=== PATIENT | male | born 1965 | race Two or more races ===

== ENCOUNTER 2019-12-07 05:58 | Day surgery (SDC) | payer OTHER ==
[~2019-12-07] VITALS: Ht 162.6 cm; Wt 76.2 kg
[2019-12-07] VITALS (12 sets, daily range): BP systolic 94–140; BP diastolic 60–85
[2019-12-07] MEDS ORDERED: celeBREX 200mg Cap **SURGERY PATIENTS ONLY ORAL ONE (06:00)
[2019-12-07] MEDS ORDERED: oxyCONTIN 20mg tab ORAL ONE (06:00)
[2019-12-07] MEDS ORDERED: ceFAZolin 1gm IVPB IVPB ONE ×2 (06:00)
[2019-12-07] MEDS ORDERED: METFORMIN HCL500 M1 ORAL (06:58)
[2019-12-07] MEDS ORDERED: AMLODIPINE BESYL5 MG ORAL (06:58)
[2019-12-07] MEDS ORDERED: LR 1000ml 1,000 ML IVLG SCH (07:05)
--- NOTE | 2019-12-07 07:05 | Anethesia Preoperative Eval ---
Anesthesia Pre-op PMH/ROS General Date of Evaluation: Dec 07, 2019 Anesthesiologist: Tonny ASA Score: ASA 2 Mallampati Score Class I : Soft palate, uvula, fauces, pillars visible Class II: Soft palate, uvula, fauces visible Class III: Soft palate, base of uvula visible Class IV: Only hard plate visible Mallampati Classification: Class II Surgeon: Edna Diagnosis: Right shoulder internal derangement Surgical Procedure: Right shoulder arthroscopy, mini marvel, rcr Anesthesia History: none Family History: no anesthesia problems Allergies: Coded Allergies: No Known Allergies (Unverified , 12/07/19) Medications: see eMAR Patient NPO?: Yes NPO Date: Dec 07, 2019 NPO Time: 00:00 Past Medical History Cardiovascular: Reports: HTN; Denies: CAD, NM, valve dz, arrhythmia, other Pulmonary: Denies: asthma, COPD, JUD, other Gastrointestinal/Genitourinary: Reports: GERD; Denies: CRI, ESRD, other Neurologic/Psychiatric: Denies: dementia, CVA, depression/anxiety, TIA, other Endocrine: Reports: DM HEENT: Denies: cataract (L), cataract (R), glaucoma, LYTTON (L), LYTTON (R), other Hematology/Immune: Denies: anemia, DVT, bleeding disorder, other Musculoskeletal/Integumentary: Reports: OA, other - LBP; Denies: RA, DJD, DDD, edema PSxH Narrative: lap appy, left hand sx Anesthesia Pre-op Phys. Exam Physician Exam Last Vital Signs Date Time Temp Pulse Resp B/P (MAP) Pulse Ox O2 Delivery O2 Flow Rate FiO2 12/07/19 06:48 97.7 60 18 124/76 99 Room Air Constitutional: NAD Cardiovascular: RRR Respiratory: CTA Airway Exam Mallampati Score: Class II MO: full ROM: full Anesthesia Pre-op A/P Labs see chart Studies Pre-op Studies: EKG - sr Risk Assessment & Plan Assessment: ASA II Plan: GA with right interscalene nerve block Status Change Before Surgery: No Pre-Antibiotics Drug: Ancef 1g Given Within 1 Hr of Incision: Yes Pam Rodríguez MD Dec 07, 2019 07:05
--- NOTE | 2019-12-07 07:05 | Pre-Procedure Note/Attestation ---
Pre-Procedure Note/Attestation Complete Prior to Procedure Planned Procedure: right Procedure Narrative: rt shoulder scope, sad, mini marvel, rtc repair Indications for Procedure Pre-Operative Diagnosis: rt shoulder rtc tear Attestation I attest that I discussed the nature of the procedure; its benefits; risks and complications; and alternatives (and the risks and benefits of such alternatives ), prior to the procedure, with the patient (or the patient's legal traveling sales representative). I attest that, if there was a reasonable possibility of needing a blood transfusion, the patient (or the patient's legal traveling sales representative) was given the [facility] standardized written summary, pursuant to the Willam Silke Blood Safety Act ([place] Health and Safety Code # 1645, as amended). I attest that I re-evaluated the patient just prior to the surgery and that there has been no change in the patient's H&P, except as documented below: none Luis Enrique Bishop MD Dec 07, 2019 07:05
[2019-12-07] MEDS ORDERED: Bupivacaine w/Epi 0.5% 30ml Vial INJ ONE (07:14)
[2019-12-07] MEDS ORDERED: DiphenhydrAMINE 50mg/ml Inj IVP PRN (07:15)
[2019-12-07] MEDS ORDERED: fentaNYL 100 mcg/2 mL IV PRN (07:15)
[2019-12-07] MEDS ORDERED: LORazepam Inj 2mg/ml 1ml IV PRN (07:15)
[2019-12-07] MEDS ORDERED: Hydromorphone 0.5mg/0.5ml inj IVP PRN (07:15)
[2019-12-07] MEDS ORDERED: Metoclopramide 10mg/2ml Inj IVP PRN (07:15)
[2019-12-07] MEDS ORDERED: Ketorolac 30mg Inj IV PRN (07:15)
[2019-12-07] MEDS ORDERED: Midazolam 2mg/2ml Inj IVP PRN (07:15)
[2019-12-07] MEDS ORDERED: Rocuronium Bromide 50mg/5ml Inj IV ONE (07:52)
[2019-12-07] MEDS ORDERED: Lidocaine 1% MPF 10mg/ml 5ml ONE (07:55)
[2019-12-07] MEDS ORDERED: Propofol 200mg/20ml IV ONE (07:55)
[2019-12-07] MEDS ORDERED: Midazolam 2mg/2ml Inj ONE (07:56)
[2019-12-07] MEDS ORDERED: fentaNYL 100 mcg/2 mL IV ONE (07:56)
[2019-12-07] MEDS ORDERED: LR 1000ml ONE (08:04)
[2019-12-07] MEDS ORDERED: HYDROmorphone 1mg/ml Carpuject SUBQ PRN (09:00)
[2019-12-07] MEDS ORDERED: Tylenol #3 tab (300mg/30mg) ORAL PRN (09:00)
[2019-12-07] MEDS ORDERED: HYDROcodone/Acetamin 5/325 tab ORAL PRN (09:00)
[2019-12-07] MEDS ORDERED: Dexamethasone 4mg/ml vial ONE (09:01)
[2019-12-07] MEDS ORDERED: Ketorolac 30mg Inj ONE (09:01)
[2019-12-07] MEDS ORDERED: Ropivacaine 5mg/ml Vial 30ml INJ ONE (09:01)
[2019-12-07] MEDS ORDERED: NS Irrig 4000ml IRRIG ONE ×3 (09:07→10:08)
--- NOTE | 2019-12-07 10:20 | Brief Operative Note ---
Immediate Post Operative Note Operative Note Chief Complaint: rt shoulder injury Pre-op Diagnosis: rt shoulder rtc tear Procedure: rt shoulder scope, sad, mini marvel rtc repair and biceps tenodesis Post-op Diagnosis: same as pre-op Findings: consistent w/pre-op dx studies Surgeon: md prabhu Stock Clipper: jia thomas Anesthesiologist: md susan Anesthesia: general Specimen: none Complications: none Condition: stable Fluids: ns Estimated Blood Loss: minimal Drains: none - biomet Implant(s) used?: Yes Luis Enrique Bishop MD Dec 07, 2019 10:20
--- NOTE | 2019-12-07 10:30 | Immediate Post-Op Evaluation ---
Immediate Post-Op Evalulation Immediate Post-Op Evalulation Procedure: Right shoulder arthroscopy with rcr Date of Evaluation: Dec 07, 2019 Time of Evaluation: 10:32 IV Fluids: 1.2L Blood Products: 0 Estimated Blood Loss: min Urinary Output: 0 Blood Pressure Systolic: 94 Blood Pressure Diastolic: 63 Pulse Rate: 56 Respiratory Rate: 16 O2 Sat by Pulse Oximetry: 99 Temperature (Fahrenheit): 97.5 Pain Score (1-10): 0 Nausea: No Vomiting: No Complications 0 Patient Status: awake, reacts, patent, none Hydration Status: adequate Drug: Ancef 1g Given Within 1 Hr of Incision: Yes Pam Rodríguez MD Dec 07, 2019 10:30
--- NOTE | 2019-12-07 10:31 | 48 Hour Post Anesthesia Eval ---
Post Anesthesia Evaluation Procedure: Right shoulder arthroscopy with rcr Date of Evaluation: Dec 07, 2019 Airway: patent Nausea: No Vomiting: No Hydration Status: adequate Cardiopulmonary Status: at baseline Mental Status/LOC: patient returned to baseline Post-Anesthesia Complications: 0 Follow-up care needed: ready to discharge Pam Rodríguez MD Dec 07, 2019 10:31
[2019-12-07] MEDS ORDERED: HYDROcodone/Acetamin 5/325 tab ONE (12:00)
--- NOTE | 2019-12-07 15:30 | Operative Note - Dictated ---
DATE OF OPERATION: 12/07/2019 PREOPERATIVE DIAGNOSIS: Right shoulder rotator cuff tear. POSTOPERATIVE DIAGNOSES: 1. Right shoulder full-thickness rotator cuff tear with retraction, L-shape measuring 3 cm. 2. Right shoulder high-grade partial tear of the biceps tendon in the bicipital groove with fraying of the biceps. 3. Right shoulder large aggressive bone spur underneath the acromion. 4. Right shoulder bone spur underneath the inferior portion of clavicle. PROCEDURE: 1. Right shoulder arthroscopy and extensive intra-articular shaving. 2. Right shoulder biceps tenotomy and tenodesis at the level of the rotator cuff repair through the rotator cuff anchors. 3. Right shoulder subacromial bursoscopy, bursectomy, subacromial decompression. 4. Right shoulder mini-Antony procedure (resection of inferior 30% distal end of the clavicle for coplaning). 5. Right shoulder arthroscopic rotator cuff repair using two Biomet 2.9 mm JuggerKnot anchors double loaded incorporating the biceps tendon into the anterior portion of the repair. SURGEON: Luis Enrique Bishop M.D. MANAGER INCOME TAX: Rosalinda Marion PA-C. Secretary Specialist was present during the actual operative portion of the case and was important and essential part of the operation. During the operation, the architectural administrative assistant held and operated the arthroscopic camera for visualization, assisted by manipulating the arm to help with visualization, and helped with essential parts of the repair process as necessary such as operating surgical instruments under surgeon supervision, suture management, and wound closures. ANESTHESIOLOGIST: Pam Lancaster M.D. ANESTHESIA: General LMA anesthesia combined with interscalene block. ESTIMATED BLOOD LOSS: Minimal. COMPLICATIONS: None. SURGICAL INDICATION: The patient is a 54-year-old male, who sustained the above injury to his shoulder. The patient was treated non-operative initially, but this did not alleviate the patients symptoms. Therefore, after discussing all non-surgical and surgical options, and discussing all foreseeable risk and benefits of surgery, the patient opted for surgical treatment as described above. PATIENT POSITIONING: The patient was brought to the operating room table and was placed on the operating room table. All pressure points were well padded. General anesthesia was induced and the patient was then placed in the lateral decubitus position. All pressure points were well padded again and an axillary roll was placed. The patient's shoulder was then prepped and draped in the usual sterile fashion. Time-out was performed and the appropriate preoperative antibiotic was given by the anesthesiologist. EXAMINATION OF SHOULDER UNDER ANESTHESIA: The shoulder was examined under anesthesia with all muscles well relaxed. The shoulder was forward flexed, abducted and was placed through full range of external and internal rotation. The anterior, posterior, and inferior stability of the shoulder was checked. The exam revealed no evidence of adhesive capsulitis and no evidence of instability. PORTAL PLACEMENT: The posterior portal was established 2 cm inferior and 1 cm medial to the edge of the posterior acromion. A 1 cm skin incision was made using an eleven blade and using the blunt obturator, the cannula was gently placed through the capsule. The midglenoid portal was established just lateral to the coracoid process under direct visualization. Direction of the cannula was first established using a spinal needle, and subsequently, the cannula was placed through the capsule with a blunt obturator. DIAGNOSTIC ARTHROSCOPY: The biceps tendon was probed and pulled through the joint for visualization. There was extensive fraying of the biceps tendon at the level of the bicipital groove and there was a partial tear, which was greater than 50% of the width of the biceps. The biceps anchor was palpated with a probe and was visualized. It appeared well attached and there was no evidence of SLAP tear. The posterior labrum and axillary recess was visualized. This was normal and there was no evidence of loose cartilage or fragments in this area. The glenoid articular surface was visualized and it appeared normal. The articular surface of the rotator cuff was visualized and probed next. There was extensive large retracted rotator cuff tear measuring 3 cm involving supraspinatus and part of infraspinatus. This was a L-shape tear. The Humeral head articular surface was then visualized. There was no evidence of articular cartilage damage. Next, the anterior labrum, middle glenohumeral ligament, subscapularis tendon, and the anterior inferior glenohumeral ligament were evaluated. These structures were completely normal. At this point, the scope was moved to the midglenoid portal and the posterior structures including the posterior labrum, posterior capsule and posterior cuff were visualized. These structures were completely normal. The subscapularis recess was devoid of any loose bodies and the anterior capsule was well attached to the humeral neck. The middle and anterior inferior glenohumeral ligament was visualized. These structures were completely normal. OPERATIVE DEBRIDEMENTS AND REPAIR: Care was given to all partial thickness tears and frayed structures in the shoulder joint. The frayed rotator cuff and labrum was debrided using a shaver initially through the anterior portal and subsequently through the posterior portal to complete the debridement. This allowed for smooth debridement of all affected structures and all loose fragments were removed. At this point, care was given to the biceps tendon. The biceps tendon appeared to be partially torn and significantly frayed in the biceps as it went into the intertubercular groove. Therefore, a suture was placed at the approximately 2 cm distal to the attachment of the biceps. A FiberWire suture was placed in to control the biceps. At this point, using the scissors, the biceps tenotomy was performed. This biceps was then taken to the subacromial space and later was repaired through the most anterior anchor during the rotator cuff repair. Two sutures were placed into the biceps to stabilize it. DIAGNOSTIC BURSOSCOPY AND SUBACROMIAL DECOMPRESSION: The subacromial bursa was entered from the posterior portal. The anterior portal was established under the CA ligament using a switching stick. Subacromial arthroscopy was initiated. There was extensive bursitis and thickened and inflamed bursa tissue present. The CA ligament appeared to be scuffed and frayed. The shaver was placed through the anterior cannula and debridement of the hypertrophic bursa tissue was accomplished. Once visualization was adequate, a lateral portal was established using a blunt trochar in the mid portion of the acromion bone in the anterior-posterior direction and approximately 2 cm lateral to the lateral edge of the acromion. Using combination of shaver and electrocautery the CA ligament was released from the undersurface of the acromion and a complete bursectomy was accomplished. At this point, a subacromial decompression was performed using a fifi initially taking off 5-8 mm of the anterolateral edge of the acromion from the lateral portal and viewing from the posterior portal. Then the lateral border of the undersurface of the acromion was decompressed to the same dept as the anterolateral edge. A posterior trough was then created in the acromion in line with the posterior edge of the clavicle. At this point, the scope was placed in the lateral portal and the subacromial decompression was performed from the posterior portal decompressing the undersurface of the acromion to dept of 5-8 mm. The decompression was performed anterior to the previously marked trough all the way medially to the level of the AC joint. At all times, care was given not to take off too much bone in order to avoid risk of fracture of the acromion. An excellent subacromial decompression was performed in this fashion. At this point, the bursal side of the rotator cuff was examined. All the bursa over the rotator cuff was removed and the rotator cuff was examined with a probe. The arm was placed into external rotation, neutral, and then internal rotation and there was a 3 cm L-shape retracted rotator cuff tear. The scope was then placed in the posterior portal and the subacromial decompression was rechecked to assure there is no area of bone spur that would be still impinging onto the rotator cuff. EVALUATION OF DISTAL CLAVICLE AND DISTAL CLAVICLE RESECTION: Care was given to the distal end of the clavicle. Using electrocautery and tyrell, the distal end of the bursa and soft tissue around the distal end of the clavicle was debrided and cleaned. Care was given not to inflict excessive trauma to the ligaments of the AC joint. The distal end of the clavicle appeared to have an inferior osteophyte extending down well bellow the level of the acromion at the level of the AC joint. This appeared to be impinging onto the supraspinatus muscle belly and the musculotendinous junction of the rotator cuff. A mini-Antony procedure was performed by using a fifi to resect the inferior 30% of the distal end of the clavicle. This decompression allowed space for the inferior structures to slide without impingement. This co-plained the inferior edge of the distal clavicle with the inferior edge of the acromion. For rotator cuff repair, the scope was placed in the lateral portal and the rotator cuff was visualized. The rotator cuff revealed a 3 cm L-shape tear. The rotator cuff foot print adjacent to the articular cartilage of the humeral head was identified. This area was debrided initially using tyrell and subsequently using fifi to provide adequate bleeding bony surface to accept the rotator cuff tendon. Attention was given to repair the rotator cuff with as little tension as possible. At this point, an arthroscopic punch was used to create holes for suture anchor placement at the medial edge of the foot print through separate stab wound incisions and an arthroscopic tap was used to prepare the holes. Two Biomet 2.9 mm JuggerKnot anchors double loaded with two #2 non-absorbable strong sutures were placed in previously prepared holes. Using standard arthroscopic suture passing instruments, the sutures were passed through the edge of rotator cuff with minimal trauma to the cuff tissue. Care was given to obtain large enough bites of the rotator cuff for the sutures to hold well. Once the sutures were passed through the cuff, the repair was secured onto the rotator cuff foot print using SMC sliding knots followed by 3 alternating-post half hitches. This allowed tension free repair of the rotator cuff with excellent stability and water tight closure. The cuff repair security was assured by palpating the repair with a probe. It should be noted that the biceps tendon was incorporated through the anterior repair by passing the suture from the anchor through the biceps tendon and then passing it again through the rotator cuff to tenodesed the biceps tendon onto the soft tissue rotator cuff as the rotator cuff was being repaired back onto the bleeding surface of the bone on the humeral head. CONDITION AT DISCHARGE FROM OPERATING ROOM: The skin was re-approximated and sterile dressing and sling were applied. All lap counts and instrument counts were correct. The patient tolerated the procedure well without complications and was taken to the recovery room in stable conditions. Luis Enrique Bishop M.D. DR: OLIVIA JOB#: [id number] CC:
[2019-12-07] MEDS ORDERED: D5 1/2NS 1,000 ML IV SCH (17:00)
== END 2019-12-07 14:00 | disposition home or self-care (01) ==
LOC: SUR 05:58
DX: M75.121 Complete rotator cuff tear or rupture of right shoulder, not specified as traumatic (principal); S46.211A Strain of muscle, fascia and tendon of other parts of biceps, right arm, initial encounter; X58.XXXA Exposure to other specified factors, initial encounter; Y93.9 Activity, unspecified; Y92.9 Unspecified place or not applicable; I10 Essential (primary) hypertension; K21.9 Gastro-esophageal reflux disease without esophagitis; M19.90 Unspecified osteoarthritis, unspecified site; Z90.89 Acquired absence of other organs
CPT/HCPCS: 29824; 29826; 29827; 29828; 82962; J0690; J1100; J1885; J2250; J2405; J2704; J2795; J3010; J7120; 94003; 94150; C1713